=== PATIENT | female | born 1935 | race Caucasian/White ===

== ENCOUNTER 2018-05-13 15:42 | Emergency (ER) | payer MEDICARE, OTHER, SELFPAY ==
[2018-05-13 15:43] VITALS: BP 149/92; PULSE 76; RESP 16; TEMP 36.7; O2SAT 96; BMI 29.4
--- NOTE | 2018-05-13 16:02 | CT_ITS ---
STUDY: CT BRAIN WITHOUT CONTRAST REASON FOR EXAM: Female, 82 years old. Severe right ear pain today. RADIATION DOSAGE (If Supplied By Facility): CTDIvol = ( 44.99 ) mGy, DLP = ( 779.24 ) mGycm TECHNIQUE: Transaxial CT imaging of the brain was performed without administration of intravenous contrast material. Individualized dose optimization techniques were used for this CT. COMPARISON: June 01, 2015 FINDINGS: There are grossly stable subcutaneous soft tissue nodules that are partially calcified overlying the right occipital calvarium. Normal calvarium. There is mild cerebral atrophy with widening of the extra-axial spaces and ventricular dilatation. There are areas of decreased attenuation within the white matter tracts of the supratentorial brain, consistent with microvascular disease changes. Normal basal ganglia and thalami. Normal brainstem. There is mild cerebellar atrophy. There is no intracranial hemorrhage. There are no findings of an acute ischemic infarction. Normal visualized paranasal sinuses. CT/Brain/Head without Contrast IMPRESSION: Chronic involutional changes of the brain. Small vessel ischemia. Electronically Signed: Marlyn Shay MD at 16:38 EDT Tel , Service support ,
--- NOTE | 2018-05-13 16:03 | ED.VISSUMM ---
- ER Visit Summary Date of Service: 05/13/18 Chief Complaint: [Pain in head] History of Present Illness: The patient is a 82 F [who presents the emergency department with pain behind her right ear. It is a shooting pain that shoots from behind her right ear to her right episcopal. It arrives every minute. He keeps her up at night. There has been no vision changes no fever. She is on Nexium for reflux and when she swallowed this morning she had a little bit of pain on the right side of her neck and then that went away. No nasal congestion she does not feel pain in her ear. She had similar pain in 2013 as well as 2015 first time she was put on penicillin and it went away the second time she was put on prednisone and it went away. She went to urgent care today and was referred to the emergency department.] Physical Examination: [] Normocephalic atraumatic skin over the area of concern behind her right ear is nontender there is no erythema or swelling Pupils are equal and reactive and extraocular eye movements are intact she will field deficits There is no temporal artery tenderness TMs are retracted bilaterally there is no erythema or purulence no bulging there is no pain with movement of the pinna There is no midline neck tenderness there is no reproducible pain with axial loading or turning the head from side to side there is no bruit Regular rate and rhythm no murmurs clear to auscultation bilaterally symmetric radial pulses Alert and oriented ?3 no focal weakness or sensory deficits no speech impairment patient walks with a cane but has no acute gait disturbances Test Results: [] Emergency Department Course and Treatment: [CT of the head shows chronic changes. CRP is mildly elevated. I do suspect this is a neuropathic pain however vasculitis is a possibility. We will start her on a trial of prednisone. She has an appointment with her doctor tomorrow. This does not sound like cardiac pain. It is a shooting pain behind her right ear up to her episcopal she has no chest pain or neck pain. I will give her a short course of pain medicine. She was given precautions for which to return and will follow up with her doctor.] Treatment Plan: [] Disposition: [Discharge] Impression: [1. 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 Mild elevation of CRP] This note was generated with [employer]ation software. It may contain incorrect words, spelling, and punctuation that were not noted in review of the chart prior to signing ED Disposition - Plan for ED Patient: Chief Complaint: Headache Referrals: Eleuterio Mistry MD [Primary Care Provider] -
--- NOTE | 2018-05-13 16:07 | ED.DCSUM_ITS ---
- ER Visit Summary Date of Service: 05/13/18 Chief Complaint: [Pain in head] History of Present Illness: The patient is a 82 F [who presents the emergency department with pain behind her right ear. It is a shooting pain that shoots from behind her right ear to her right zoroastrianism. It arrives every minute. He keeps her up at night. There has been no vision changes no fever. She is on Nexium for reflux and when she swallowed this morning she had a little bit of pain on the right side of her neck and then that went away. No nasal congestion she does not feel pain in her ear. She had similar pain in 2013 as well as 2015 first time she was put on penicillin and it went away the second time she was put on prednisone and it went away. She went to urgent care today and was referred to the emergency department.] Physical Examination: [] Normocephalic atraumatic skin over the area of concern behind her right ear is nontender there is no erythema or swelling Pupils are equal and reactive and extraocular eye movements are intact she will field deficits There is no temporal artery tenderness TMs are retracted bilaterally there is no erythema or purulence no bulging there is no pain with movement of the pinna There is no midline neck tenderness there is no reproducible pain with axial loading or turning the head from side to side there is no bruit Regular rate and rhythm no murmurs clear to auscultation bilaterally symmetric radial pulses Alert and oriented ?3 no focal weakness or sensory deficits no speech impairment patient walks with a cane but has no acute gait disturbances Test Results: [] Emergency Department Course and Treatment: [CT of the head shows chronic changes. CRP is mildly elevated. I do suspect this is a neuropathic pain however vasculitis is a possibility. We will start her on a trial of prednisone. She has an appointment with her doctor tomorrow. This does not sound like cardiac pain. It is a shooting pain behind her right ear up to her zoroastrianism she has no chest pain or neck pain. I will give her a short course of pain medicine. She was given precautions for which to return and will follow up with her doctor.] Treatment Plan: [] Disposition: [Discharge] Impression: [1. 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 Mild elevation of CRP] This note was generated with [employer] software. It may contain incorrect words, spelling, and punctuation that were not noted in review of the chart prior to signing ED Disposition - Plan for ED Patient: Chief Complaint: Headache Referrals: Eleuterio Mistry MD [Primary Care Provider] -
[2018-05-13 16:56] LABS: CRP 4.36 mg/L (0.0-3.0)
--- NOTE | 2018-05-13 17:26 | ED.DEP ---
ED Disposition - Plan for ED Patient: Chief Complaint: Headache Instructions: ED Cephalgia Unspecified Prescriptions: Oxycodone HCl/Acetaminophen [Percocet 5/325] 1 tablet PO Q6H PRN PRN 2 Days #6 tablet PRN Reason: Pain Prednisone [Deltasone] 40 mg PO DAILY 8 Days tablet Referrals: Eleuterio Mistry MD [Primary Care Provider] - 1 Day
[2018-05-13] MEDS: predniSONE 20 MG Tablet 40 MG PO (17:31)
[2018-05-13] MEDS: HYDROcodone Bitartrate/Apap 5/325 Tablet PO (17:32)
[2018-05-13 17:36] VITALS: BP 138/78; PULSE 80; RESP 14; O2SAT 98
== END 2018-05-13 17:36 | disposition home or self-care (01) ==
PROVIDERS: Emergency Provider Emergency Medicine; Family Provider Family Medicine; PCP Family Medicine
DX: R51 Headache (principal); G62.9 Polyneuropathy, unspecified; K21.9 Gastro-esophageal reflux disease without esophagitis; R79.82 Elevated C-reactive protein (CRP)
CPT/HCPCS: 70450; 86140; 99283

== ENCOUNTER 2019-01-07 16:50 | Observation (INO) | payer MEDICARE, OTHER, SELFPAY ==
[2019-01-07] VITALS (9 sets, daily range): BP systolic 146–196; BP diastolic 65–91; PULSE 66–83; RESP 17–18; TEMP 37.3–37.4; O2SAT 96–100; BMI 30.4; BMI 29.1
--- NOTE | 2019-01-07 17:17 | EKG12_ITS ---
Test Reason : NEURO S/X Blood Pressure : / mmHG Vent. Rate : 073 BPM Atrial Rate : 073 BPM P-R Int : 156 ms QRS Dur : 098 ms QT Int : 404 ms P-R-T Axes : 047 -31 019 degrees QTc Int : 445 ms Normal sinus rhythm Left axis deviation Moderate voltage criteria for LVH, may be normal variant Nonspecific ST abnormality Abnormal ECG Confirmed by KATLYN CHAN, NAGA ([id number]), desk editor LEONEL MCKINNEY ([id number]) on 01/11/2019 10:42:12 AM Referred By: Confirmed By:NAGA POTTS MD
--- NOTE | 2019-01-07 17:17 | CT_ITS ---
STUDY: CT BRAIN WITHOUT CONTRAST REASON FOR EXAM: Female, 83 years old. Difficulty speaking. RADIATION DOSAGE (If Supplied By Facility): CTDIvol = ( 44.99 ) mGy, DLP = ( 745.49 ) mGycm TECHNIQUE: Transaxial CT imaging of the brain was performed without administration of intravenous contrast material. Individualized dose optimization techniques were used for this CT. COMPARISON: May 13, 2018 FINDINGS: There are grossly two stable subcutaneous partially calcified subcutaneous nodule within the posterior neck. Normal calvarium. Normal size ventricles and extra-axial spaces for the patient's age. There are areas of decreased attenuation within the white matter tracts of the supratentorial brain, consistent with microvascular disease changes. Normal basal ganglia and thalami. Normal brainstem. Normal cerebellum. There is no intracranial hemorrhage. There are no findings of an acute ischemic infarction. Normal visualized paranasal sinuses. CT/Brain/Head without Contrast IMPRESSION: Small vessel ischemia. Electronically Signed: Marlyn Shay MD at 18:34 EST Tel , Service support ,
--- NOTE | 2019-01-07 17:17 | RAD_ITS ---
STUDY: X-RAY CHEST REASON FOR EXAM: Female, 83 years old. Difficulty finding words and mentation TECHNIQUE: Single frontal view COMPARISON: April 01, 2015 FINDINGS: The lungs are clear and expanded. There is no demonstrated pleural abnormality. Normal size heart. Normal mediastinum and cheko. Normal visualized pulmonary arteries. Calcified aortic arch and descending thoracic aorta. Normal visualized thoracic spine. Normal visualized ribs, clavicles, and shoulders. There is no demonstrated abnormality of the visualized soft tissue structures of the upper abdomen. RAD/Chest 1 View IMPRESSION: Normal x-ray examination of the chest. Electronically Signed: Vince Jurado DO at 19:38 EST Tel [phone], Service support ,
--- NOTE | 2019-01-07 17:24 | ED.VISSUMM ---
- ER Visit Summary Date of Service: 01/07/19 Chief Complaint: Difficulty speaking History of Present Illness: The patient is a 83 F presenting after having an episode of difficulty speaking. She states that this started around 2 PM. She had difficulty finding words. She states she was stressed over paying bills at the time and was having trouble focusing. Her symptoms have now resolved. She also complains of urinary frequency and dysuria. She has had similar symptoms in the past when she had a bladder infection. She denies numbness or weakness. Denies vision changes. She feels back to baseline. Physical Examination: Blood pressure 196/76. Temperature 99.4. Alert no acute distress. HEENT exam is unremarkable. Neck is supple. Lungs are clear and equal bilaterally. Heart is regular rate and rhythm. Abdomen is soft nontender nondistended. Extremities are unremarkable. Skin is warm and dry. No focal neurologic deficit. NIH 0 Remainder of exam is unremarkable. Emergency Department Course and Treatment: EKG is sinus rate of 73. CBC, chemistries unremarkable. Urinalysis shows positive leukocytes, 0-5 white blood cells. Urine culture was sent. Troponin was negative. CT head shows small vessel ischemia. NIH remains 0. Will discuss with the hospitalist for observation. Disposition: Observation Impression: TIA This note was generated with [employer] dictation software. It may contain incorrect words, spelling, and punctuation that were not noted in review of the chart prior to signing ED Disposition - Plan for ED Patient: Referrals: Eleuterio Mistry MD [Primary Care Provider] -
[2019-01-07 17:52] LABS: Absolute Lymphocyte Count 1.06 X10^3/ul (0.83-4.51); Absolute Neutrophil Count 2.9 X10^3/uL (2.0-7.7); Basophil# 0.03 X10^3/uL; Basophil% 0.7 % (0-1); Eosinophil# 0.12 X10^3/uL; Eosinophils% 2.7 % (0-5); Hematocrit 44.1 % (37-47); Lymphocyte # 1.06 X10^3/ul (4.0); Lymphocyte % 23.7 % (19-41); Mean Corp Hgb Conc 31.7 g/gl (32-36); Mean Corpuscular Hgb 28.6 pg (27.0-32.0); Mean Corpuscular Volume 90.2 fL (81-99); Mean Platelet Vol. 9.4 fl (6.2-12.0); Monocyte# 0.37 X10^3/uL; Monocyte% 8.3 % (0-10); Neutrophil % 64.6 % (47-70); Platelet Count 243 K/mm3 (150-450); RBC Distribution Width CV 12.6 % (11.6-14.6); RBC Distribution Width SD 40.9 fl (35.1-43.9); Red Blood Count 4.89 M/mm3 (4.2-5.4); White Blood Count 4.5 K/mm3 (4.4-11.0)
[2019-01-07 17:55] LABS: POSITIVE COUNT NO; POSITIVE DIFFERENTIAL NO; POSITIVE MORPHOLOGY NO
[2019-01-07 17:56] LABS: Bacteria 0 SEEN /hpf (None Seen); Mucous, Urine 0 SEEN /hpf (<or=2+); Red Blood Cells-Urine 0 SEEN /hpf (0-5)
[2019-01-07 18:05] LABS: Color, Urine Straw (Yellow); Glucose, Dipstick Normal (Normal); Ketone-Dipstick Negative (Negative); Leukocyte Esterase-Dipstick 100 /ul (Negative); Nitrite-Dipstick Negative (Negative); Occult Blood-Urine 10 /ul (Negative); Protein-Dipstick Negative (Negative); Specific Gravity, Urine 1.015 (1.002-1.030); Urine Bilirubin Dipstick Negative (Negative); Urine Clarity Clear (Clear); Urine Urobilinogen Normal (Normal)
[2019-01-07 18:23] LABS: Squamous Epithelial Cells - UA 0-5 SEEN /hpf (5-10)
[2019-01-07 18:25] LABS: White Blood Cells 0-5 SEEN /hpf (0-5)
[2019-01-07 18:26] LABS: Transitional Epithelial - Ur 0-5 SEEN /hpf (0-5)
[2019-01-07 18:29] LABS: Anion Gap 8 (5-15); BUN 14 mg/dL (7-18); BUN/Creat Ratio 17.6 RATIO (10-20); Calcium,Total 8.8 mg/dL (8.5-10.1); Chloride 106 mmol/L (98-107); EST Glomerular Filtration Rate 73 mL/min (>60); Est Glom Filt Rate - Afr Amer 88 mL/min (>60); Estimated Creatinine Clearance 44.08 ml/min; Glucose 134 mg/dL (74-106); Potassium 4.2 mmol/L (3.5-5.1); Sodium Level 139 mmol/L (136-145)
[2019-01-07 18:56] LABS: International Normalized Ratio 0.9; Partial Thromboplast Time 28.5 Seconds (24.1-36.2); Prothrombin Time (Protime)PT. 12.5 SECONDS (11.7-14.9)
--- NOTE | 2019-01-07 20:27 | PCM.HP.STD ---
History of Present Illness The patient is a 83 year old F [] Past Medical History Past Medical History (Chronic Problems): Chronic Problems Hyperlipidemia (Chronic) GERD (gastroesophageal reflux disease) (Chronic) CVA (cerebral infarction) (Chronic) Anxiety and depression (Chronic) Allergies lactose Adverse Reaction (Verified 06/01/15 19:26) Upset Stomach Home Medications: Ambulatory Orders Medication Instructions Recorded Aspirin [Aspirin, Baby] 81 mg PO DAILY@0800 #30 tab.chew 04/02/15 Acetaminophen [Tylenol] 500 mg PO PRN PRN 01/07/19 Doxepin HCl [Silenor] 3 mg PO QHS 01/07/19 Meloxicam [Mobic] 15 mg PO DAILY 01/07/19 Surgical History: hysterectomy Psychiatric History: Anxiety, Depression 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 Smoking Status: Never smoker - *Family History Maternal History Items: Cancer, Diabetes, Heart Disease, Stroke Paternal History Items: Cancer, Diabetes, Heart Disease, Stroke - Physical Exam Vital Signs Temp Pulse Resp BP Pulse Ox 99.4 F H 76 18 169/65 H 96 01/07/19 16:57 01/07/19 19:00 01/07/19 19:00 01/07/19 19:00 01/07/19 19:00 Oxygen Delivery Method Room Air Weight: 77.8 kg Body Mass Index (BMI) 30.4 Finger Stick Blood Glucose 134 Laboratory Tests Past 24 Hrs 01/07/19 01/07/19 01/07/19 17:36 17:36 17:36 WBC 4.5 RBC 4.89 Hgb 14.0 Hct 44.1 MCV 90.2 MCH 28.6 MCHC 31.7 L RDW 12.6 RDW Differential 40.9 Plt Count 243 MPV 9.4 Immature Gran % (Auto) 0.000 Neut % (Auto) 64.6 Lymph % (Auto) 23.7 [place] % (Auto) 8.3 Eos % (Auto) 2.7 Baso % (Auto) 0.7 Absolute Neuts (auto) 2.9 Absolute Lymphs (auto) 1.06 Total Counted Not Reportable PT 12.5 INR 0.9 APTT 28.5 Sodium 139 Potassium 4.2 Chloride 106 Carbon Dioxide 25.0 Anion Gap 8 BUN 14 Creatinine 0.80 Estim Creat Clear Calc 44.08 Est GFR (MDRD) Af Amer 88 Est GFR (MDRD) Non-Af 73 BUN/Creatinine Ratio 17.6 Glucose 134 H Calcium 8.8 Troponin I < 0.015 Urine Color Urine Clarity Urine pH Ur Specific [place] Urine Protein Urine Glucose (UA) Urine Ketones Urine Occult Blood Urine Nitrite Urine Bilirubin Urine Urobilinogen Ur Leukocyte Esterase Urine RBC Urine WBC Ur Squamous Epith Cells Ur Transition Epith Cell Urine Bacteria Urine Mucus 01/07/19 17:43 WBC RBC Hgb Hct MCV MCH MCHC RDW RDW Differential Plt Count MPV Immature Gran % (Auto) Neut % (Auto) Lymph % (Auto) [place] % (Auto) Eos % (Auto) Baso % (Auto) Absolute Neuts (auto) Absolute Lymphs (auto) Total Counted PT INR APTT Sodium Potassium Chloride Carbon Dioxide Anion Gap BUN Creatinine Estim Creat Clear Calc Est GFR (MDRD) Af Amer Est GFR (MDRD) Non-Af BUN/Creatinine Ratio Glucose Calcium Troponin I Urine Color Straw Urine Clarity Clear Urine pH 7.0 Ur Specific [place] 1.015 Urine Protein Negative Urine Glucose (UA) Normal Urine Ketones Negative Urine Occult Blood 10 H Urine Nitrite Negative Urine Bilirubin Negative Urine Urobilinogen Normal Ur Leukocyte Esterase 100 H Urine RBC 0 SEEN Urine WBC 0-5 SEEN Ur Squamous Epith Cells 0-5 SEEN Ur Transition Epith Cell 0-5 SEEN Urine Bacteria 0 SEEN Urine Mucus 0 SEEN Assessment/Plan All Active Problems TIA (transient ischemic attack) (Acute) Gastroesophageal reflux disease with hiatal hernia (Acute)
--- NOTE | 2019-01-07 20:50 | PCM.HP.STD ---
Problem List (1) Hyperlipidemia Status: Chronic Qualifiers: Hyperlipidemia type: unspecified Qualified Code(s): E78.5 - Hyperlipidemia, unspecified (2) TIA (transient ischemic attack) Status: Acute Qualifiers: Transient cerebral ischemia type: unspecified Qualified Code(s): G45.9 - Transient cerebral ischemic attack, unspecified (3) Anxiety and depression Status: Chronic (4) Gastroesophageal reflux disease with hiatal hernia Status: Chronic History of Present Illness Date of Admission: 01/07/19 Chief Complaint: Difficulty speaking - 1 day The patient is a 83 year old F past medical history of TIA, patient denies any history of stroke, anxiety/depression, hyperlipidemia who comes in with complaints of expressive aphasia that started around 2 PM. Patient was sitting down trying to do her bills, had difficulty thinking through the bills, difficulty also speaking. She denied feeling unwell prior to this presentation. This lasted for couple of hours, seemed to have resolved when she was given some aspirin. Patient is supposed to be on aspirin but does not take. Vitals in the ED show temperature of 99.4F, chills 196/79, heart rate was 80, respiratory rate was 17, SPO2 is 98% on room air. Her admitting lab was unremarkable. UA was unremarkable. CT of the head showed small vessel ischemia. Chest x-ray was unremarkable Past Medical History Past Medical History (Chronic Problems): Chronic Problems Hyperlipidemia (Chronic) GERD (gastroesophageal reflux disease) (Chronic) CVA (cerebral infarction) (Chronic) Anxiety and depression (Chronic) Gastroesophageal reflux disease with hiatal hernia (Chronic) Allergies lactose Adverse Reaction (Verified 06/01/15 19:26) Upset Stomach Home Medications: Ambulatory Orders Medication Instructions Recorded Aspirin [Aspirin, Baby] 81 mg PO DAILY@0800 #30 tab.chew 04/02/15 Acetaminophen [Tylenol] 500 mg PO PRN PRN 01/07/19 Doxepin HCl [Silenor] 3 mg PO QHS 01/07/19 Meloxicam [Mobic] 15 mg PO DAILY 01/07/19 Surgical History: hysterectomy Psychiatric History: Anxiety, Depression 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 Dyspnea Respiratory: Denies: Cough, Hemoptysis, Shortness of Breath, Shortness of breath at rest, Shortness of breath upon exertion, Sputum production Gastrointestinal: Denies: Abdominal Pain, Constipation, Hematemesis, Hematochezia, Nausea, Vomiting Genitourinary: Denies: Dysuria Musculoskeletal: Denies: Joint Pain, Joint Tenderness Skin: Denies: Rash, Wounds Neurological: Reports: Change in Speech, Slurred speech, Confusion. Denies: Difficulty swallowing, Focal weakness, Numbness, Tingling Psychiatric: Denies: Anxiety, Depression, Homicidal Ideations, Suicidal Ideations Endocrine: Denies: Change in Body Habitus, Heat/ Cold Intolerance Hematologic/ Lymphatic: Denies: Easy Bruising, Easy Bleeding VTE Information - Inpt Only VTE Present on Admission: No VTE Pharm Prophylaxis ordered?: Yes - Physical Exam General: Alert, Oriented x3, Cooperative, No apparent distress HEENT: Atraumatic, PERRLA, EOMI, Normocephalic Oral: Moist Mucosa Neck: Supple, No JVD, Negative Carotid Bruits Lungs: Clear to auscultation, Normal air movement Cardiovascular: Regular rate, Regular Rhythm, Normal S1, Normal S2, No murmurs Abdomen: Bowel Sounds Present, Soft, Non Tender, Non-Distended, No Hepato-splenomegaly Extremities: No edema Skin: No rashes, No breakdown Musculoskeletal: No Tenderness to Palpation of Joints or Extremities Lymphatic: No Cervical, Supraclavicular, or Inguinal Adenopathy Neurological: Cranial nerves II-XII grossly intact, Neuro grossly intact Psych/Mental Status: Normal Affect, Appropriate Vital Signs Temp Pulse Resp BP Pulse Ox 99.4 F H 76 18 169/65 H 96 01/07/19 16:57 01/07/19 19:00 01/07/19 19:00 01/07/19 19:00 01/07/19 19:00 Oxygen Delivery Method Room Air Weight: 77.8 kg Body Mass Index (BMI) 30.4 Finger Stick Blood Glucose 134 Laboratory Tests Past 24 Hrs 01/07/19 01/07/19 01/07/19 17:36 17:36 17:36 WBC 4.5 RBC 4.89 Hgb 14.0 Hct 44.1 MCV 90.2 MCH 28.6 MCHC 31.7 L RDW 12.6 RDW Differential 40.9 Plt Count 243 MPV 9.4 Immature Gran % (Auto) 0.000 Neut % (Auto) 64.6 Lymph % (Auto) 23.7 [place] % (Auto) 8.3 Eos % (Auto) 2.7 Baso % (Auto) 0.7 Absolute Neuts (auto) 2.9 Absolute Lymphs (auto) 1.06 Total Counted Not Reportable PT 12.5 INR 0.9 APTT 28.5 Sodium 139 Potassium 4.2 Chloride 106 Carbon Dioxide 25.0 Anion Gap 8 BUN 14 Creatinine 0.80 Estim Creat Clear Calc 44.08 Est GFR (MDRD) Af Amer 88 Est GFR (MDRD) Non-Af 73 BUN/Creatinine Ratio 17.6 Glucose 134 H Calcium 8.8 Troponin I < 0.015 Urine Color Urine Clarity Urine pH Ur Specific [place] Urine Protein Urine Glucose (UA) Urine Ketones Urine Occult Blood Urine Nitrite Urine Bilirubin Urine Urobilinogen Ur Leukocyte Esterase Urine RBC Urine WBC Ur Squamous Epith Cells Ur Transition Epith Cell Urine Bacteria Urine Mucus 01/07/19 17:43 WBC RBC Hgb Hct MCV MCH MCHC RDW RDW Differential Plt Count MPV Immature Gran % (Auto) Neut % (Auto) Lymph % (Auto) [place] % (Auto) Eos % (Auto) Baso % (Auto) Absolute Neuts (auto) Absolute Lymphs (auto) Total Counted PT INR APTT Sodium Potassium Chloride Carbon Dioxide Anion Gap BUN Creatinine Estim Creat Clear Calc Est GFR (MDRD) Af Amer Est GFR (MDRD) Non-Af BUN/Creatinine Ratio Glucose Calcium Troponin I Urine Color Straw Urine Clarity Clear Urine pH 7.0 Ur Specific [place] 1.015 Urine Protein Negative Urine Glucose (UA) Normal Urine Ketones Negative Urine Occult Blood 10 H Urine Nitrite Negative Urine Bilirubin Negative Urine Urobilinogen Normal Ur Leukocyte Esterase 100 H Urine RBC 0 SEEN Urine WBC 0-5 SEEN Ur Squamous Epith Cells 0-5 SEEN Ur Transition Epith Cell 0-5 SEEN Urine Bacteria 0 SEEN Urine Mucus 0 SEEN Assessment/Plan All Active Problems TIA (transient ischemic attack) (Acute) 83 year old F past medical history of TIA, patient denies any history of stroke, anxiety/depression, hyperlipidemia who comes in with complaints of expressive aphasia that started around 2 PM of the day of presentation. 1. Acute onset of expressive aphasia, transient, lasted for couple of hours, resolved, likely secondary to TIA Plan: Admit to PCU, monitor on telemetry, TIA/stroke protocol, PT, OT, speech therapy, neurology consult, continue on aspirin, lipid profile, HgbA1c, 2D echo, MRI of the head, MRA of the head and neck 2. Anxiety/depression, not on medication 3. Chronic insomnia, on doxepin, will not recommend, would hold for now 4. DVT PPx- Lovenox SC Code Visit OBSV E&M: [id number] Initial observation care L3
--- NOTE | 2019-01-07 22:06 | ECHOD_ITS ---
Reason For Study: TIA/CVA Procedure This was a 2D Doppler, Color Flow transthoracic echocardiogram. Exam performed portable in patient room. Left Ventricle Normal size and thickness. The estimated ejection fraction is 75 %. Stage 1 diastolic dysfunction. No regional wall motion abnormalities noted. Right Ventricle Normal size and thickness. Normal systolic function. Atria Normal left atrium. Normal right atrium. Normal atrial septum. Bubble contrast study negative for right to left interatrial shunt. Mitral Valve The mitral valve is structurally normal. No prolapse or stenosis seen. Trivial mitral valve insufficiency. Tricuspid Valve Normal tricuspid valve. Trivial tricuspid valve insufficiency. Right ventricular systolic pressure estimated to be 31 mmHg. Aortic Valve Trisinus/trileaflet aortic valve. Mild diffuse aortic valve thickening. Trivial aortic valve insufficiency. Pulmonic Valve Normal pulmonic valve. Great Vessels Normal aortic root. Normal arch. Normal inferior vena cava. Inferior vena cava collapse with sniff. Pericardium/Pleural No pericardial effusion. Medication Performed a rapid injection of agitated mix of 9 cc saline and 1cc air to assess for atrial septal defect. MMode/2D Measurements & Calculations LVIDd: 3.2 cm IVSd: 1.2 cm Ao root diam: 3.3 cm LVIDs: 1.8 cm LVPWd: 0.93 cm RVDd: 3.7 cm FS: 44.4 % LAV(MOD-bp): 37.7 ml LVAd ap4: 21.1 cm2 SV(MOD-sp4): 37.9 ml LAV(MOD-bp) Indexed: 20.8 ml/m2 EDV(MOD-sp4): 55.0 ml LAV(MOD-sp2): 37.7 ml EDV(sp4-el): 58.2 ml LAV(MOD-sp4): 38.3 ml LVAs ap4: 10.2 cm2 ESV(MOD-sp4): 17.1 ml ESV(sp4-el): 17.3 ml EF(MOD-sp4): 69.0 % EF(sp4-el): 70.3 % SV(sp4-el): 40.9 ml LA A4 area: 15.9 cm2 LA dimension(2D): 4.2 cm RA A4 area: 10.5 cm2 Doppler Measurements & Calculations MV E max phill: 66.4 cm/sec Lat Peak E' Phill: 4.1 cm/sec Med Peak E' Phill: 5.2 cm/sec MV A max phill: 100.0 cm/sec E/E' lat: 16.1 E/E' med: 12.9 MV E/A: 0.66 Ao V2 max: 120.2 cm/sec LV V1 max: 115.9 cm/sec PA V2 max: 76.4 cm/sec Ao max P.8 mmHg LV V1 max P.4 mmHg Ao V2 mean: 86.9 cm/sec Ao mean P.3 mmHg Ao V2 VTI: 26.9 cm TR max phill: 258.5 cm/sec TR max P.7 mmHg Interpretation Summary The estimated ejection fraction is 75 %. Stage 1 diastolic dysfunction. Trivial mitral valve insufficiency. Trivial tricuspid valve insufficiency. Right ventricular systolic pressure estimated to be 31 mmHg. Trivial aortic valve insufficiency. Bubble contrast study negative for right to left interatrial shunt. There is no comparison study available. Ordering Physician: Desire Hawkins Referring Physician: Eleuterio Msitry Performed By: Angelika Becerra, GABINO, RVT
[2019-01-07 23:50] LABS: Hemoglobin A1c 6.2 % (4.2-6.3)
[2019-01-08] VITALS (7 sets, daily range): BP systolic 135–154; BP diastolic 63–87; PULSE 66–72; RESP 16–18; TEMP 36.8–37.2; O2SAT 94–96; BMI 29.1
[2019-01-08] MEDS: Atorvastatin Calcium 80 MG Tablet PO (00:46)
[2019-01-08 07:10] LABS: Anion Gap 8 (5-15); BUN 13 mg/dL (7-18); BUN/Creat Ratio 17.9 RATIO (10-20); Calcium,Total 8.8 mg/dL (8.5-10.1); Chloride 107 mmol/L (98-107); Cholesterol 249 mg/dL (200); Creatinine, Serum 0.72 mg/dL (0.55-1.02); EST Glomerular Filtration Rate 82 mL/min (>60); Est Glom Filt Rate - Afr Amer 99 mL/min (>60); Estimated Creatinine Clearance 35.26 ml/min; Glucose 109 mg/dL (74-106); High Density Lipoprotein 62 mg/dL; Potassium 3.6 mmol/L (3.5-5.1); Sodium Level 142 mmol/L (136-145); Triglycerides 142 mg/dL; Very Low Density Lipoprotein 28 mg/dL (5-40)
[2019-01-08] MEDS: Aspirin 81 MG TAB.CHEW PO (09:44)
--- NOTE | 2019-01-08 10:53 | PCM.CONS.GEN ---
Reason for Consult Date of Consultation: 01/08/19 Reason for Consultation: aphasia History of Present Illness: 83 yo right handed white female presented after a 2 hr episode of language difficulty lasting for 2hrs then resolved , no other associated symptoms, feels normal now. reports significant stress recently and wonders if causative. no recent illness. recently she indicates her primary care doctor added a new pill for arthrities one month ago. no other recent medication changes, no recent illness. describes stress associated with relationships. per admit note:The patient is a 83 year old F past medical history of TIA, patient denies any history of stroke, anxiety/depression, hyperlipidemia who comes in with complaints of expressive aphasia that started around 2 PM. Patient was sitting down trying to do her bills, had difficulty thinking through the bills, difficulty also speaking. She denied feeling unwell prior to this presentation. This lasted for couple of hours, seemed to have resolved when she was given some aspirin. Patient is supposed to be on aspirin but does not take. Vitals in the ED show temperature of 99.4F, chills 196/79, heart rate was 80, respiratory rate was 17, SPO2 is 98% on room air. Her admitting lab was unremarkable. UA was unremarkable. CT of the head showed small vessel ischemia. Chest x-ray was unremarkable Past Medical History Past Medical History (Chronic Problems): Chronic Problems Hyperlipidemia (Chronic) GERD (gastroesophageal reflux disease) (Chronic) CVA (cerebral infarction) (Chronic) Anxiety and depression (Chronic) Gastroesophageal reflux disease with hiatal hernia (Chronic) Allergies lactose Adverse Reaction (Verified 06/01/15 19:26) Upset Stomach Home Medications: Ambulatory Orders Medication Instructions Recorded Aspirin [Aspirin, Baby] 81 mg PO DAILY@0800 #30 tab.chew 04/02/15 Acetaminophen [Tylenol] 500 mg PO PRN PRN 01/07/19 Doxepin HCl [Silenor] 3 mg PO QHS 01/07/19 Meloxicam [Mobic] 15 mg PO DAILY 01/07/19 Surgical History: hysterectomy Psychiatric History: Anxiety, Depression [employer] History: No pertinent [employer] history Lives: Alone Smoking Status: Never smoker Alcohol: None Drugs: None - *Family History Maternal History Items: Cancer, Diabetes, Heart Disease, Stroke Paternal History Items: Cancer, Diabetes, Heart Disease, Stroke Review of Systems Constitutional: Denies: Chills, Fever, Weight Change HEENT: Denies: Head Aches, Sinus Congestion, Sinus Drainage Cardiovascular: Denies: Chest Pain, Palpitations Respiratory: Denies: Cough, Shortness of breath at rest, Sputum production Gastrointestinal: Denies: Abdominal Pain, Nausea, Vomiting Genitourinary: Denies: Dysuria Musculoskeletal: Denies: Joint Pain, Joint Tenderness Skin: Denies: Rash, Wounds Neurological: Reports: Change in Speech. Denies: Focal weakness, Numbness, Tingling Psychiatric: Reports: Anxiety. Denies: Depression, Homicidal Ideations, Suicidal Ideations Hematologic/ Lymphatic: Denies: Easy Bruising, Easy Bleeding - Physical Exam General: Alert, Oriented x3, Cooperative, No apparent distress HEENT: Atraumatic, PERRLA, EOMI Neurological: Cranial nerves II-XII grossly intact, Deep Tendon Reflexes 2+/4 and Symmetrical, Neuro grossly intact, Motor Exam 5/5 strength throughout, Sensory exam intact to light touch and pain Psych/Mental Status: Normal Affect, Alert and oriented to time, place, person, mood and affect Vital Signs Temp Pulse Resp BP Pulse Ox 36.8 C 70 16 143/66 H 94 01/08/19 09:28 01/08/19 09:28 01/08/19 09:28 01/08/19 09:28 01/08/19 09:28 Oxygen Delivery Method Room Air Weight: 74.7 kg Body Mass Index (BMI) 29.1 Finger Stick Blood Glucose 134 Intake and Output for Last 24 Hours 01/06/19 01/07/19 01/08/19 23:59 23:59 23:59 Intake Total 240 / 240 Balance 240 / 240 Laboratory Tests Past 24 Hrs 01/07/19 01/07/19 01/07/19 17:36 17:36 17:36 WBC 4.5 RBC 4.89 Hgb 14.0 Hct 44.1 MCV 90.2 MCH 28.6 MCHC 31.7 L RDW 12.6 RDW Differential 40.9 Plt Count 243 MPV 9.4 Immature Gran % (Auto) 0.000 Neut % (Auto) 64.6 Lymph % (Auto) 23.7 [place] % (Auto) 8.3 Eos % (Auto) 2.7 Baso % (Auto) 0.7 Absolute Neuts (auto) 2.9 Absolute Lymphs (auto) 1.06 Total Counted Not Reportable PT 12.5 INR 0.9 APTT 28.5 Sodium 139 Potassium 4.2 Chloride 106 Carbon Dioxide 25.0 Anion Gap 8 BUN 14 Creatinine 0.80 Estim Creat Clear Calc 44.08 Est GFR (MDRD) Af Amer 88 Est GFR (MDRD) Non-Af 73 BUN/Creatinine Ratio 17.6 Glucose 134 H Hemoglobin A1c Calcium 8.8 Troponin I < 0.015 Triglycerides Cholesterol LDL Cholesterol VLDL Cholesterol HDL Cholesterol Urine Color Urine Clarity Urine pH Ur Specific [place] Urine Protein Urine Glucose (UA) Urine Ketones Urine Occult Blood Urine Nitrite Urine Bilirubin Urine Urobilinogen Ur Leukocyte Esterase Urine RBC Urine WBC Ur Squamous Epith Cells Ur Transition Epith Cell Urine Bacteria Urine Mucus 01/07/19 01/07/19 01/07/19 17:36 17:43 22:30 WBC RBC Hgb Hct MCV MCH MCHC RDW RDW Differential Plt Count MPV Immature Gran % (Auto) Neut % (Auto) Lymph % (Auto) [place] % (Auto) Eos % (Auto) Baso % (Auto) Absolute Neuts (auto) Absolute Lymphs (auto) Total Counted PT INR APTT Sodium Potassium Chloride Carbon Dioxide Anion Gap BUN Creatinine Estim Creat Clear Calc Est GFR (MDRD) Af Amer Est GFR (MDRD) Non-Af BUN/Creatinine Ratio Glucose Hemoglobin A1c 6.2 Calcium Troponin I < 0.015 Triglycerides Cholesterol LDL Cholesterol VLDL Cholesterol HDL Cholesterol Urine Color Straw Urine Clarity Clear Urine pH 7.0 Ur Specific [place] 1.015 Urine Protein Negative Urine Glucose (UA) Normal Urine Ketones Negative Urine Occult Blood 10 H Urine Nitrite Negative Urine Bilirubin Negative Urine Urobilinogen Normal Ur Leukocyte Esterase 100 H Urine RBC 0 SEEN Urine WBC 0-5 SEEN Ur Squamous Epith Cells 0-5 SEEN Ur Transition Epith Cell 0-5 SEEN Urine Bacteria 0 SEEN Urine Mucus 0 SEEN 01/08/19 01/08/19 01:00 06:30 WBC RBC Hgb Hct MCV MCH MCHC RDW RDW Differential Plt Count MPV Immature Gran % (Auto) Neut % (Auto) Lymph % (Auto) [place] % (Auto) Eos % (Auto) Baso % (Auto) Absolute Neuts (auto) Absolute Lymphs (auto) Total Counted PT INR APTT Sodium 142 Potassium 3.6 Chloride 107 Carbon Dioxide 27.0 Anion Gap 8 BUN 13 Creatinine 0.72 Estim Creat Clear Calc 35.26 Est GFR (MDRD) Af Amer 99 Est GFR (MDRD) Non-Af 82 BUN/Creatinine Ratio 17.9 Glucose 109 H Hemoglobin A1c Calcium 8.8 Troponin I < 0.015 Triglycerides 142 Cholesterol 249 H LDL Cholesterol 159 H VLDL Cholesterol 28 HDL Cholesterol 62 Urine Color Urine Clarity Urine pH Ur Specific [place] Urine Protein Urine Glucose (UA) Urine Ketones Urine Occult Blood Urine Nitrite Urine Bilirubin Urine Urobilinogen Ur Leukocyte Esterase Urine RBC Urine WBC Ur Squamous Epith Cells Ur Transition Epith Cell Urine Bacteria Urine Mucus Current Home Med List Medication Instructions Recorded Confirmed Type Acetaminophen [Tylenol] 500 mg PO PRN PRN 01/07/19 01/07/19 History Doxepin HCl [Silenor] 3 mg PO QHS 01/07/19 01/07/19 History Meloxicam [Mobic] 15 mg PO DAILY 01/07/19 01/07/19 History Current Medications Acetaminophen 650 mg 01/07/19 22:06 Tylenol PO Q6H PRN PRN Mild Pain (1-3)/Temp > 100.7 F Aspirin 81 mg 01/08/19 08:00 01/08/19 09:44 Aspirin, Baby PO 81 mg DAILY@0800 MANISHA Administration Atorvastatin Calcium 80 mg 01/07/19 22:06 01/08/19 00:46 Lipitor PO 80 mg QHS MANISHA Administration Magnesium Hydroxide 30 ml 01/07/19 22:06 Milk Of Magnesia PO DAILY PRN Constipation Sodium Chloride 5 - 15 ml 01/08/19 00:30 IV UD PRN SALINE FLUSH mra brain, reviewed, no stenosis mra neck: Reviewed, no stenosis mri brain: Reviewed, no acute. There is mild subcortical white matter disease but no acute. Assessment/Plan All Active Problems TIA (transient ischemic attack) (Acute) tia vs conversion reaction: suggest ssri. suggest avoid narcotics as feasible ok to dc home if echo ok continue asa recommend lexapro 10mg daily
--- NOTE | 2019-01-08 14:12 | PCM.DC ---
You will use the following diet at home:: No restrictions Your food should be the consistency of: Regular Call your doctor if you observe: - - confusion. difficulty speaking Allergies/Adverse Reactions: Allergies lactose Adverse Reaction (Verified 06/01/15 19:26) Upset Stomach Medications to take at Discharge Aspirin [Aspirin, Baby] 81 mg PO DAILY@0800 #30 tab.chew 04/02/15 Acetaminophen [Tylenol] 500 mg PO PRN PRN 01/07/19 Doxepin HCl [Silenor] 3 mg PO QHS 01/07/19 Meloxicam [Mobic] 15 mg PO DAILY 01/07/19 Escitalopram Oxalate [Lexapro] 10 mg PO DAILY #30 tablet 01/08/19 The following prescriptions were given: Escitalopram Oxalate [Lexapro] 10 mg PO DAILY #30 tablet Primary Care Physician: Eleuterio Mistry MD [Primary Care Provider] - Within 2 Weeks Test Results: Test results from this visit will be discussed in further detail at your follow-up appointment, if applicable. Proposed Discharge Date: 01/08/19
--- NOTE | 2019-01-08 14:15 | DCINST_ITS ---
You will use the following diet at home:: No restrictions Your food should be the consistency of: Regular Call your doctor if you observe: - - confusion. difficulty speaking Allergies/Adverse Reactions: Allergies lactose Adverse Reaction (Verified 06/01/15 19:26) Upset Stomach Medications to take at Discharge Aspirin [Aspirin, Baby] 81 mg PO DAILY@0800 #30 tab.chew 04/02/15 Acetaminophen [Tylenol] 500 mg PO PRN PRN 01/07/19 Doxepin HCl [Silenor] 3 mg PO QHS 01/07/19 Meloxicam [Mobic] 15 mg PO DAILY 01/07/19 Escitalopram Oxalate [Lexapro] 10 mg PO DAILY #30 tablet 01/08/19 The following prescriptions were given: Escitalopram Oxalate [Lexapro] 10 mg PO DAILY #30 tablet Primary Care Physician: Eleuterio Mistry MD [Primary Care Provider] - Within 2 Weeks Test Results: Test results from this visit will be discussed in further detail at your follow- up appointment, if applicable. Proposed Discharge Date: 01/08/19
--- NOTE | 2019-01-08 14:15 | PCM.DC.SUM ---
Discharge Date and Diagnosis - Problem List Patient Problems: Active and Suspected Problems Delirium (Acute) Date of Admission: 01/07/19 Date of Discharge: 01/08/19 - Primary Discharge Diagnosis Active and Suspected Problems Delirium (Acute) - Secondary Discharge Diagnosis Chronic Problems Hyperlipidemia (Chronic) GERD (gastroesophageal reflux disease) (Chronic) CVA (cerebral infarction) (Chronic) Anxiety and depression (Chronic) Gastroesophageal reflux disease with hiatal hernia (Chronic) Hospital Course and Treatment Imaging Results: 01/08/19 22:06 Brain without Contrast [MRI] Routine MRA Head ONLY without Contrast [MRI] Routine MRA Neck WITH and W/O Contrast [MRI] Routine Clinical Impression(s) from Imaging Studies Brain CT 01/07/19 17:17 IMPRESSION: Small vessel ischemia. Electronically Signed: Marlyn Shay MD at 18:34 EST Tel , Service support , Chest X-Ray 01/07/19 17:17 IMPRESSION: Normal x-ray examination of the chest. Electronically Signed: Vince Jurado DO at 19:38 EST Tel [phone], Service support , Brain MRI 01/08/19 22:06 IMPRESSION: Involutional changes of the brain, as described above. Electronically Signed: Sancho Hilario MD at 12:10 EST , Service support , Head MRA 01/08/19 22:06 IMPRESSION: Normal MRA of the head. No aneurysm or occlusion. Stable appearance. Electronically Signed: Sancho Hilario MD at 11:12 EST , Service support , Neck MRA 01/08/19 22:06 IMPRESSION: Normal bilateral cervical carotid and vertebral arteries. Electronically Signed: Sancho Hilario MD at 12:16 EST , Service support , Wily Perez MD: Neurology. Operations: None Procedures: 2-D Echocardiogram Summary of Care Provided: The patient is a 83 year old F presents with expressive aphasia. Symptoms lasted a couple hours and then resolve spontaneously. Patient was doing some paperwork. She does state that she was under stress but denies any undue stress. Denies any history of panic attacks. Patient presented to the emergency room where her symptoms had completely resolved. Patient is never had any issues like this before. Patient underwent a stroke workup with an MRI of the brain, MRA of the head and neck unremarkable. Echocardiogram was performed is currently pending at time of dictation. Patient was seen in consultation by neurology feel that the event of a stress reaction and recommended an SSRI Lexapro 10 mg daily. So patient will be discharged home in stable condition and will be started on Cipro 10 mg daily. Advised to return if she does have recurrent symptoms. [] Patient Problems: Active and Suspected Problems Delirium (Acute) - Physical Exam General: Alert, Cooperative, No apparent distress HEENT: Atraumatic, Normocephalic Oral: Moist Mucosa, No Gingival or Mucosal Lesions/ Ulcerations Neck: No Nodes, Thyroid Normal Size and Texture Lungs: Clear to auscultation, Normal air movement, No rhonchi, No wheeze Cardiovascular: Regular rate, Regular Rhythm, Normal S1, Normal S2 Abdomen: Bowel Sounds Present, Soft, Non Tender, Non-Distended, No Hepato-splenomegaly Extremities: No edema, No Calf Tenderness Vital Signs Temp Pulse Resp BP Pulse Ox 36.8 C 72 18 154/87 H 95 01/08/19 13:15 01/08/19 13:15 01/08/19 13:15 01/08/19 13:15 01/08/19 13:15 Oxygen Delivery Method Room Air Weight: 74.7 kg Body Mass Index (BMI) 29.1 Finger Stick Blood Glucose 134 Intake and Output for Last 24 Hours 01/06/19 01/07/19 01/08/19 23:59 23:59 23:59 Intake Total 240 / 240 Balance 240 / 240 Microbiology Past 72 Hours 01/07/19 17:43 Urine Culture - Preliminary Urine, Clean Catch Culture exhibits no growth. Laboratory Tests Past 24 Hrs 01/07/19 01/07/19 01/07/19 17:36 17:36 17:36 WBC 4.5 RBC 4.89 Hgb 14.0 Hct 44.1 MCV 90.2 MCH 28.6 MCHC 31.7 L RDW 12.6 RDW Differential 40.9 Plt Count 243 MPV 9.4 Immature Gran % (Auto) 0.000 Neut % (Auto) 64.6 Lymph % (Auto) 23.7 [place] % (Auto) 8.3 Eos % (Auto) 2.7 Baso % (Auto) 0.7 Absolute Neuts (auto) 2.9 Absolute Lymphs (auto) 1.06 Total Counted Not Reportable PT 12.5 INR 0.9 APTT 28.5 Sodium 139 Potassium 4.2 Chloride 106 Carbon Dioxide 25.0 Anion Gap 8 BUN 14 Creatinine 0.80 Estim Creat Clear Calc 44.08 Est GFR (MDRD) Af Amer 88 Est GFR (MDRD) Non-Af 73 BUN/Creatinine Ratio 17.6 Glucose 134 H Hemoglobin A1c Calcium 8.8 Troponin I < 0.015 Triglycerides Cholesterol LDL Cholesterol VLDL Cholesterol HDL Cholesterol Urine Color Urine Clarity Urine pH Ur Specific [place] Urine Protein Urine Glucose (UA) Urine Ketones Urine Occult Blood Urine Nitrite Urine Bilirubin Urine Urobilinogen Ur Leukocyte Esterase Urine RBC Urine WBC Ur Squamous Epith Cells Ur Transition Epith Cell Urine Bacteria Urine Mucus 01/07/19 01/07/19 01/07/19 17:36 17:43 22:30 WBC RBC Hgb Hct MCV MCH MCHC RDW RDW Differential Plt Count MPV Immature Gran % (Auto) Neut % (Auto) Lymph % (Auto) [place] % (Auto) Eos % (Auto) Baso % (Auto) Absolute Neuts (auto) Absolute Lymphs (auto) Total Counted PT INR APTT Sodium Potassium Chloride Carbon Dioxide Anion Gap BUN Creatinine Estim Creat Clear Calc Est GFR (MDRD) Af Amer Est GFR (MDRD) Non-Af BUN/Creatinine Ratio Glucose Hemoglobin A1c 6.2 Calcium Troponin I < 0.015 Triglycerides Cholesterol LDL Cholesterol VLDL Cholesterol HDL Cholesterol Urine Color Straw Urine Clarity Clear Urine pH 7.0 Ur Specific [place] 1.015 Urine Protein Negative Urine Glucose (UA) Normal Urine Ketones Negative Urine Occult Blood 10 H Urine Nitrite Negative Urine Bilirubin Negative Urine Urobilinogen Normal Ur Leukocyte Esterase 100 H Urine RBC 0 SEEN Urine WBC 0-5 SEEN Ur Squamous Epith Cells 0-5 SEEN Ur Transition Epith Cell 0-5 SEEN Urine Bacteria 0 SEEN Urine Mucus 0 SEEN 01/08/19 01/08/19 01:00 06:30 WBC RBC Hgb Hct MCV MCH MCHC RDW RDW Differential Plt Count MPV Immature Gran % (Auto) Neut % (Auto) Lymph % (Auto) [place] % (Auto) Eos % (Auto) Baso % (Auto) Absolute Neuts (auto) Absolute Lymphs (auto) Total Counted PT INR APTT Sodium 142 Potassium 3.6 Chloride 107 Carbon Dioxide 27.0 Anion Gap 8 BUN 13 Creatinine 0.72 Estim Creat Clear Calc 35.26 Est GFR (MDRD) Af Amer 99 Est GFR (MDRD) Non-Af 82 BUN/Creatinine Ratio 17.9 Glucose 109 H Hemoglobin A1c Calcium 8.8 Troponin I < 0.015 Triglycerides 142 Cholesterol 249 H LDL Cholesterol 159 H VLDL Cholesterol 28 HDL Cholesterol 62 Urine Color Urine Clarity Urine pH Ur Specific [place] Urine Protein Urine Glucose (UA) Urine Ketones Urine Occult Blood Urine Nitrite Urine Bilirubin Urine Urobilinogen Ur Leukocyte Esterase Urine RBC Urine WBC Ur Squamous Epith Cells Ur Transition Epith Cell Urine Bacteria Urine Mucus Discharge Diet: No Restrictions Discharge Activity: Return to Normal Activity Call your doctor if you observe: - - confusion. difficulty speaking Home Medications: Medications to take at Discharge Aspirin [Aspirin, Baby] 81 mg PO DAILY@0800 #30 tab.chew 04/02/15 Acetaminophen [Tylenol] 500 mg PO PRN PRN 01/07/19 Doxepin HCl [Silenor] 3 mg PO QHS 01/07/19 Meloxicam [Mobic] 15 mg PO DAILY 01/07/19 Escitalopram Oxalate [Lexapro] 10 mg PO DAILY #30 tablet 01/08/19 Following Prescrptions Were Given to Patient: Escitalopram Oxalate [Lexapro] 10 mg PO DAILY #30 tablet Primary Care Physician: Eleuterio Mistry MD [Primary Care Provider] - Within 2 Weeks Disposition: Home Minutes spent on discharge:: 28 Patient Condition:: Good Medical Necessity - Tobacco Use Smoking Status: Never smoker Meaningful Use Info Meaningful Use Diagnoses (Choose all that apply): None applicable Code Visit OBSV E&M: 18569 Observation care discharge
--- NOTE | 2019-01-08 14:18 | DS.PCM_ITS ---
Discharge Date and Diagnosis - Problem List Patient Problems: Active and Suspected Problems Delirium (Acute) Date of Admission: 01/07/19 Date of Discharge: 01/08/19 - Primary Discharge Diagnosis Active and Suspected Problems Delirium (Acute) - Secondary Discharge Diagnosis Chronic Problems Hyperlipidemia (Chronic) GERD (gastroesophageal reflux disease) (Chronic) CVA (cerebral infarction) (Chronic) Anxiety and depression (Chronic) Gastroesophageal reflux disease with hiatal hernia (Chronic) Hospital Course and Treatment Imaging Results: 01/08/19 22:06 Brain without Contrast [MRI] Routine MRA Head ONLY without Contrast [MRI] Routine MRA Neck WITH and W/O Contrast [MRI] Routine Clinical Impression(s) from Imaging Studies Brain CT 01/07/19 17:17 IMPRESSION: Small vessel ischemia. Electronically Signed: Marlyn Shay MD at 18:34 EST Tel , Service support , Chest X-Ray 01/07/19 17:17 IMPRESSION: Normal x-ray examination of the chest. Electronically Signed: Vince Jurado DO at 19:38 EST Tel [phone], Service support , Brain MRI 01/08/19 22:06 IMPRESSION: Involutional changes of the brain, as described above. Electronically Signed: Sancho Hilario MD at 12:10 EST , Service support , Head MRA 01/08/19 22:06 IMPRESSION: Normal MRA of the head. No aneurysm or occlusion. Stable appearance. Electronically Signed: Sancho Hilario MD at 11:12 EST , Service support , Neck MRA 01/08/19 22:06 IMPRESSION: Normal bilateral cervical carotid and vertebral arteries. Electronically Signed: Sancho Hilario MD at 12:16 EST , Service support , Wily Perez MD: Neurology. Operations: None Procedures: 2-D Echocardiogram Summary of Care Provided: The patient is a 83 year old F presents with expressive aphasia. Symptoms lasted a couple hours and then resolve spontaneously. Patient was doing some paperwork. She does state that she was under stress but denies any undue stress. Denies any history of panic attacks. Patient presented to the emergency room where her symptoms had completely resolved. Patient is never had any issues like this before. Patient underwent a stroke workup with an MRI of the brain, MRA of the head and neck unremarkable. Echocardiogram was performed is currently pending at time of dictation. Patient was seen in consultation by neurology feel that the event of a stress reaction and recommended an SSRI Lexapro 10 mg daily. So patient will be discharged home in stable condition and will be started on Cipro 10 mg daily. Advised to return if she does have recurrent symptoms. [] Patient Problems: Active and Suspected Problems Delirium (Acute) - Physical Exam General: Alert, Cooperative, No apparent distress HEENT: Atraumatic, Normocephalic Oral: Moist Mucosa, No Gingival or Mucosal Lesions/ Ulcerations Neck: No Nodes, Thyroid Normal Size and Texture Lungs: Clear to auscultation, Normal air movement, No rhonchi, No wheeze Cardiovascular: Regular rate, Regular Rhythm, Normal S1, Normal S2 Abdomen: Bowel Sounds Present, Soft, Non Tender, Non-Distended, No Hepato- splenomegaly Extremities: No edema, No Calf Tenderness Vital Signs Temp Pulse Resp BP Pulse Ox 36.8 C 72 18 154/87 H 95 01/08/19 13:15 01/08/19 13:15 01/08/19 13:15 01/08/19 13:15 01/08/19 13:15 Oxygen Delivery Method Room Air Weight: 74.7 kg Body Mass Index (BMI) 29.1 Finger Stick Blood Glucose 134 Intake and Output for Last 24 Hours 01/06/19 01/07/19 01/08/19 23:59 23:59 23:59 Intake Total 240 / 240 Balance 240 / 240 Microbiology Past 72 Hours 01/07/19 17:43 Urine Culture - Preliminary Urine, Clean Catch Culture exhibits no growth. Laboratory Tests Past 24 Hrs 01/07/19 01/07/19 01/07/19 17:36 17:36 17:36 WBC 4.5 RBC 4.89 Hgb 14.0 Hct 44.1 MCV 90.2 MCH 28.6 MCHC 31.7 L RDW 12.6 RDW Differential 40.9 Plt Count 243 MPV 9.4 Immature Gran % (Auto) 0.000 Neut % (Auto) 64.6 Lymph % (Auto) 23.7 [place] % (Auto) 8.3 Eos % (Auto) 2.7 Baso % (Auto) 0.7 Absolute Neuts (auto) 2.9 Absolute Lymphs (auto) 1.06 Total Counted Not Reportable PT 12.5 INR 0.9 APTT 28.5 Sodium 139 Potassium 4.2 Chloride 106 Carbon Dioxide 25.0 Anion Gap 8 BUN 14 Creatinine 0.80 Estim Creat Clear Calc 44.08 Est GFR (MDRD) Af Amer 88 Est GFR (MDRD) Non-Af 73 BUN/Creatinine Ratio 17.6 Glucose 134 H Hemoglobin A1c Calcium 8.8 Troponin I < 0.015 Triglycerides Cholesterol LDL Cholesterol VLDL Cholesterol HDL Cholesterol Urine Color Urine Clarity Urine pH Ur Specific [place] Urine Protein Urine Glucose (UA) Urine Ketones Urine Occult Blood Urine Nitrite Urine Bilirubin Urine Urobilinogen Ur Leukocyte Esterase Urine RBC Urine WBC Ur Squamous Epith Cells Ur Transition Epith Cell Urine Bacteria Urine Mucus 01/07/19 01/07/19 01/07/19 17:36 17:43 22:30 WBC RBC Hgb Hct MCV MCH MCHC RDW RDW Differential Plt Count MPV Immature Gran % (Auto) Neut % (Auto) Lymph % (Auto) [place] % (Auto) Eos % (Auto) Baso % (Auto) Absolute Neuts (auto) Absolute Lymphs (auto) Total Counted PT INR APTT Sodium Potassium Chloride Carbon Dioxide Anion Gap BUN Creatinine Estim Creat Clear Calc Est GFR (MDRD) Af Amer Est GFR (MDRD) Non-Af BUN/Creatinine Ratio Glucose Hemoglobin A1c 6.2 Calcium Troponin I < 0.015 Triglycerides Cholesterol LDL Cholesterol VLDL Cholesterol HDL Cholesterol Urine Color Straw Urine Clarity Clear Urine pH 7.0 Ur Specific [place] 1.015 Urine Protein Negative Urine Glucose (UA) Normal Urine Ketones Negative Urine Occult Blood 10 H Urine Nitrite Negative Urine Bilirubin Negative Urine Urobilinogen Normal Ur Leukocyte Esterase 100 H Urine RBC 0 SEEN Urine WBC 0-5 SEEN Ur Squamous Epith Cells 0-5 SEEN Ur Transition Epith Cell 0-5 SEEN Urine Bacteria 0 SEEN Urine Mucus 0 SEEN 01/08/19 01/08/19 01:00 06:30 WBC RBC Hgb Hct MCV MCH MCHC RDW RDW Differential Plt Count MPV Immature Gran % (Auto) Neut % (Auto) Lymph % (Auto) [place] % (Auto) Eos % (Auto) Baso % (Auto) Absolute Neuts (auto) Absolute Lymphs (auto) Total Counted PT INR APTT Sodium 142 Potassium 3.6 Chloride 107 Carbon Dioxide 27.0 Anion Gap 8 BUN 13 Creatinine 0.72 Estim Creat Clear Calc 35.26 Est GFR (MDRD) Af Amer 99 Est GFR (MDRD) Non-Af 82 BUN/Creatinine Ratio 17.9 Glucose 109 H Hemoglobin A1c Calcium 8.8 Troponin I < 0.015 Triglycerides 142 Cholesterol 249 H LDL Cholesterol 159 H VLDL Cholesterol 28 HDL Cholesterol 62 Urine Color Urine Clarity Urine pH Ur Specific [place] Urine Protein Urine Glucose (UA) Urine Ketones Urine Occult Blood Urine Nitrite Urine Bilirubin Urine Urobilinogen Ur Leukocyte Esterase Urine RBC Urine WBC Ur Squamous Epith Cells Ur Transition Epith Cell Urine Bacteria Urine Mucus Discharge Diet: No Restrictions Discharge Activity: Return to Normal Activity Call your doctor if you observe: - - confusion. difficulty speaking Home Medications: Medications to take at Discharge Aspirin [Aspirin, Baby] 81 mg PO DAILY@0800 #30 tab.chew 04/02/15 Acetaminophen [Tylenol] 500 mg PO PRN PRN 01/07/19 Doxepin HCl [Silenor] 3 mg PO QHS 01/07/19 Meloxicam [Mobic] 15 mg PO DAILY 01/07/19 Escitalopram Oxalate [Lexapro] 10 mg PO DAILY #30 tablet 01/08/19 Following Prescrptions Were Given to Patient: Escitalopram Oxalate [Lexapro] 10 mg PO DAILY #30 tablet Primary Care Physician: Eleuterio Mistry MD [Primary Care Provider] - Within 2 Weeks Disposition: Home Minutes spent on discharge:: 28 Patient Condition:: Good Medical Necessity - Tobacco Use Smoking Status: Never smoker Meaningful Use Info Meaningful Use Diagnoses (Choose all that apply): None applicable Code Visit OBSV E&M: 67494 Observation care discharge
--- NOTE | 2019-01-08 22:06 | MRI_ITS ---
STUDY: MRA OF THE HEAD WITHOUT CONTRAST REASON FOR EXAM: Female, 83 years old. Stroke. Difficulty speaking. Visual changes. TECHNIQUE: 3-D [id number] (TOF) imaging was performed with MIPs. The study was performed unenhanced. COMPARISON: CT January 07, 2019. MRA April 02, 2015. FINDINGS: Normal bilateral petrous carotid arteries. Normal right cavernous carotid artery with a normal supraclinoid bifurcation. Normal left cavernous carotid artery with a normal supraclinoid bifurcation. Normal right A1 segments of the anterior cerebral artery. Normal left A1 segments of the anterior cerebral artery. Normal intact anterior communicating artery (ACOM). Normal bilateral A2 segments of the anterior cerebral arteries. Normal right M1 and M2 segments of the middle cerebral arteries, with a normal M1 bifurcation. Normal left M1 and M2 segments of the middle cerebral arteries, with a normal M1 bifurcation. There is non-visualization of the right posterior communicating artery (PCOM). Normal left posterior communicating artery (PCOM). Normal bilateral vertebral arteries. Normal basilar artery with a normal basilar bifurcation. The visualized bilateral superior cerebellar (SCA) arteries are normal. Normal bilateral P1, P2 and visualized P3 segments of the posterior cerebral arteries. There is no demonstrated aneurysm of the [place]. There is no major vessel occlusion or hemodynamically significant stenosis. There is no demonstrated abnormality of the visualized brain. MRI/MRA Head ONLY without Contrast IMPRESSION: Normal MRA of the head. No aneurysm or occlusion. Stable appearance. Electronically Signed: Sancho Hilario MD at 11:12 EST , Service support ,
--- NOTE | 2019-01-08 22:06 | MRI_ITS ---
STUDY: MRA NECK WITH AND WITHOUT CONTRAST REASON FOR EXAM: Female, 83 years old. Slurred speech. Visual changes. TECHNIQUE: 3-D [id number]-ot-epyyqx (TOF) imaging was performed in an 1.5 T MRI scanner. 7 ml of Gadavist was administered for the contrast enhanced images. COMPARISON: April 02, 2015. FINDINGS: RIGHT CAROTID ARTERIES: Normal right common carotid artery (CCA). Normal right common carotid bulb. Normal origin of the right internal carotid (ICA) artery without a hemodynamically significant stenosis. There is atherosclerotic tortuous elongation of the cervical portion of the right internal carotid artery. Normal origin of the right external carotid artery (ECA). LEFT CAROTID ARTERIES: Normal left common carotid artery (CCA). Normal left common carotid bulb. Normal origin of the left internal carotid (ICA) artery without a hemodynamically significant stenosis. Normal visualized cervical portion of the left internal carotid artery. Normal origin of the left external carotid artery (ECA). VERTEBRAL ARTERIES: Normal antegrade flow within the bilateral vertebral artery without a hemodynamically significant stenosis. MRI/MRA Neck WITH and W/O Contrast IMPRESSION: Normal bilateral cervical carotid and vertebral arteries. Electronically Signed: Sancho Hilario MD at 12:16 EST , Service support ,
--- NOTE | 2019-01-08 22:06 | MRI_ITS ---
STUDY: MRI BRAIN WITHOUT CONTRAST REASON FOR EXAM: Female, 83 years old. Slurred speech. Visual changes. TECHNIQUE: Standardized multiplanar fat and water weighted pulse sequences were obtained. COMPARISON: CT January 07, 2019. FINDINGS: Normal size of the ventricles and extra-axial spaces for the patient's age. There are multiple white matter hyperintensities, distributed throughout the deep white matter tracts of the cerebral hemispheres, consistent with moderate chronic white matter ischemic changes. There is no evidence for recent intracranial ischemia or other cause of cytotoxic edema on diffusion weighted imaging (DWI). Normal T2* images of the brain without demonstrated susceptibility artifact. There is no demonstrated hemosiderin stain. Normal bilateral basal ganglia. Normal thalami. There is no extra-axial fluid accumulation. Normal flow voids within the major intracranial circulation suggesting patency by spin echo criteria. Normal sella turcica, pituitary gland, infundibular stalk, optic chiasm and hypothalamus. Normal tectal plate and pineal gland. Normal midbrain, tristian and medulla. Normal cerebellum. Normal basal cisterns. Normal bilateral temporal bones. Normal bilateral internal auditory canals. There are bilateral ocular lens implants with otherwise normal intraorbital contents. Normal visualized paranasal sinuses. Normal calvarium and skull base. There is diminished signal regions and possible calcifications of the posterior scalp. Normal visualized upper cervical spine. MRI/Brain without Contrast IMPRESSION: Involutional changes of the brain, as described above. Electronically Signed: Sancho Hilario MD at 12:10 EST , Service support ,
== END 2019-01-08 14:13 | disposition home or self-care (01) ==
LOC: ED 18:19 → PCU 21:01
PROVIDERS: Admitting Provider Internal Medicine; Emergency Provider Emergency Medicine; Family Provider Family Medicine; PCP Family Medicine
DX: R41.0 Disorientation, unspecified (principal); R47.01 Aphasia; E78.5 Hyperlipidemia, unspecified; K21.9 Gastro-esophageal reflux disease without esophagitis; K44.9 Diaphragmatic hernia without obstruction or gangrene; F41.9 Anxiety disorder, unspecified; F32.9 Major depressive disorder, single episode, unspecified; R29.700 NIHSS score 0; Z79.899 Other long term (current) drug therapy; Z79.82 Long term (current) use of aspirin; Z86.73 Personal history of transient ischemic attack (TIA), and cerebral infarction without residual deficits; F51.04 Psychophysiologic insomnia
CPT/HCPCS: 36415; 70450; 70544; 70549; 70551; 71045; 80048; 80061; 81001; 83036; 84484; 85025; 85610; 85730; 87086; 87088; 92523; 92610; 93005; 93306; 97161; 97165; 97802; 99218; 99283; A9585; A4216; G0378

== ENCOUNTER 2022-11-01 22:34 | Emergency (ER) | payer MEDICARE, OTHER, SELFPAY ==
--- NOTE | 2022-11-01 00:10 | RAD_ITS ---
INDICATION: cough EXAMINATION/TECHNIQUE: X-RAY - AP view of chest COMPARISON: Chest x-ray from 01/07/2019 FINDINGS: LINES/DEVICES: None. LUNGS: No pulmonary edema or focal airspace consolidation. No sizable pleural effusion. No detectable pneumothorax. MEDIASTINUM AND CARDIOVASCULAR STRUCTURES: Heart normal size. Atherosclerotic calcifications along stable slightly tortuous aorta. BONES AND SOFT TISSUES: Skeletal degenerative changes. RAD/Chest 1 View (Portable) IMPRESSION: No radiographic evidence of acute cardiopulmonary disease. Electronically Signed: Eleuterio Brown MD at 1:11 EST ,
[2022-11-01 22:35] VITALS: BP 173/74; PULSE 90; RESP 18; TEMP 36.1; O2SAT 98; BMI 31.6
[2022-11-01 22:37] VITALS: BP 173/74; PULSE 90; RESP 18; TEMP 36.1; O2SAT 98
--- NOTE | 2022-11-01 23:02 | EKG12_ITS ---
Test Reason : DYSRHYTHMIA Blood Pressure : / mmHG Vent. Rate : 084 BPM Atrial Rate : 084 BPM P-R Int : 164 ms QRS Dur : 084 ms QT Int : 384 ms P-R-T Axes : 044 -33 014 degrees QTc Int : 453 ms Sinus rhythm with occasional Premature ventricular complexes Left axis deviation Inferior infarct , age undetermined Abnormal ECG Confirmed by KATLYN CHAN, NAGA ([id number]), acquisition editor LETICIA HEARN ([id number]) on 11/05/2022 12:15:04 PM Referred By: LIZABETH Confirmed By:NAGA POTTS MD
--- NOTE | 2022-11-01 23:02 | CT_ITS ---
INDICATION: Upper abdominal pain, nausea. EXAMINATION: CT ABDOMEN AND PELVIS WITHOUT CONTRAST TECHNIQUE: Helically acquired images were obtained of the abdomen and pelvis without IV contrast. 2-D reconstructions reviewed. A radiation dose optimization technique was used for this scan. IV Contrast dosage and agent: None. Oral contrast: None. COMPARISON: None. FINDINGS: LOWER CHEST: Mild bibasilar linear scarring. Normal size heart with coronary arterial calcifications. Small hiatal hernia noted. LIVER: Punctate calcified granulomas within liver. Mild focal fat within the left lobe adjacent to falciform ligament. GALLBLADDER AND BILIARY TREE: Tiny calcified stone within the tip of gallbladder. Equivocal mild gallbladder wall thickening versus under distention. No significant biliary ductal dilation. PANCREAS: No discrete mass or peripancreatic edema. SPLEEN: Normal size without discrete mass. ADRENAL GLANDS: Unremarkable. KIDNEYS AND URETERS: Kidneys are symmetric size with a few small bilateral renal cysts. Renal vascular calcifications but no tract stones identified. No perinephric edema or hydroureteronephrosis to suggest recent stone passage. PERITONEUM: No peritoneal free air or significant free fluid. No other fluid collection. RETROPERITONEUM: No retroperitoneal mass or pathologic fluid collection. BOWEL: Normal appendix posterior to the cecum within the right paracolic gutter. Equivocal mildly thickened loops of jejunum within mid to upper abdomen. No bowel obstruction. Distal colonic diverticulosis. No focal inflammatory change. LYMPH NODES: No enlarged mesenteric or retroperitoneal lymph nodes. VESSELS: Atherosclerotic calcifications with no abdominal aortic aneurysm. URINARY BLADDER: Unremarkable as visualized. REPRODUCTIVE ORGANS: Status post partial hysterectomy. No pelvic mass. ABDOMINAL WALL: No acute findings or significant hernia defect. BONES: Degenerative changes and mild scoliotic curvature along spine. Status post right hip arthroplasty. CT/Abdomen/Pelvis without Cont IMPRESSION: 1. Cholelithiasis with equivocal mild gallbladder wall thickening versus underdistention. Suggest further evaluation with gallbladder ultrasound. 2. Equivocal mild enteritis. 3. Distal colonic diverticulosis with no evidence of diverticulitis. 4. Other nonurgent findings within body of report. Electronically Signed: Eleuterio Brown MD at 1:18 EST ,
--- NOTE | 2022-11-01 23:04 | EX.ED.DYSGE1 ---
HPI <Dr. Tess Carrizales MD - Last Filed: 11/02/22 00:40> History of Present Illness Chief Complaint: Abd Pain Detail of Chief Complaint: I'm sick Informant: patient Narrative Narrative: Patient presents with a several week history of URI symptoms. She has been seen at urgent care as well as by her primary care office and placed on Tessalon Perles and doxycycline. She states after taking dose this evening she developed upper abdominal pain with a pressure and full sensation. She is had nausea. She states she is still passing gas. She has not had fever or chills. PFSH <Dr. Tess Carrizales MD - Last Filed: 11/02/22 00:40> [facility] Medical History Anxiety and depression CVA (cerebral infarction) Gastroesophageal reflux disease with hiatal hernia GERD (gastroesophageal reflux disease) Hyperlipidemia TIA (transient ischemic attack) Home Medications aspirin 81 mg chewable tablet 81 mg PO DAILY@0800 ##30 04/02/15 [Rx Last Taken 01/07/19] acetaminophen 500 mg tablet 500 mg PO PRN PRN Pain 01/07/19 [History Last Taken 01/06/19] doxepin 3 mg tablet (Silenor) 3 mg PO QHS sleep 01/07/19 [History Last Taken 01/06/19] meloxicam 15 mg tablet 15 mg PO DAILY 01/07/19 [History Last Taken 01/06/19] escitalopram oxalate 10 mg tablet 10 mg PO DAILY ##30 01/08/19 [Rx Last Taken Unknown] ondansetron HCl 4 mg tablet 4 mg PO Q6H PRN nausea and vomiting #14 tabs 11/02/22 [Rx Last Taken Unknown] Allergy/AdvReac Type Severity Reaction Status Date / Time lactose AdvReac Upset Verified 06/01/15 19:26 Stomach Social History Smoking Status: Never smoker ROS <Dr. Tess Carrizales MD - Last Filed: 11/02/22 00:40> ROS ED Constitutional Constitutional ED: Denies chills or fever(s) Eyes Eyes: Denies change in vision or discharge from eye(s) ENT ENT ED: Denies discharge from eye(s), rhinorrhea or sore throat Cardiovascular Cardiovascular: Denies chest pain or palpitations Respiratory/Chest Respiratory/Chest: Reports cough and dyspnea Gastrointestinal Gastrointestinal: Reports abdominal pain, nausea and vomiting; Denies diarrhea Genitourinary Genitourinary ED: Reports urinary frequency; Denies dysuria Musculoskeletal Musculoskeletal: Denies back pain or extremity pain Integumentary Denies Abrasions or rash Neurologic Neurologic: Denies headache(s) or weakness Allergic/Immunologic Allergic/Immunologic ED: Denies lip swelling or urticaria EXAM <Dr. Tess Carrizales MD - Last Filed: 11/02/22 00:40> Physical Exam Const Vital Signs: 11/01/22 22:35 11/01/22 22:37 11/02/22 00:41 Temperature 96.9 F L 96.9 F L Temperature Source Temporal Temporal Pulse Rate 90 90 74 Respiratory Rate 18 18 16 Blood Pressure 173/74 H 173/74 H 137/59 H Blood Pressure Mean 107 107 85 Pulse Ox 98 98 99 Oxygen Delivery Method Room Air Room Air Room Air 11/02/22 00:43 Temperature 98.2 F Temperature Source Temporal Pulse Rate 74 Respiratory Rate 17 Blood Pressure 137/59 H Blood Pressure Mean 85 Pulse Ox 98 Oxygen Delivery Method Room Air Positive well nourished and well developed General Appearance ED: well developed HEENT Reports normocephalic and head/scalp atraumatic Eyes PERRL and EOMs intact bilaterally Neck supple Chest Wall inspection of chest normal and palpation of chest normal Resp normal respiratory effort and clear to auscultation bilaterally Cardio regular rate and regular rhythm GI GI Narrative: Mild epigastric tenderness palpation. No guarding or rebound. Hypoactive bowel sounds. Palpation: soft Back/Spine no CVA tenderness Extremity normal to inspection Neuro oriented x3 and no sensory deficits noted Sensorium / Orientation: alert Motor Exam: strength 5/5 throughout Psych mental status grossly normal Skin no rashes or lesions noted <Dr. Chrissy Soliz DO - Last Filed: 11/02/22 01:50> Physical Exam Const Vital Signs: 11/01/22 22:35 12 22:37 11/02/22 00:41 Temperature 96.9 F L 96.9 F L Temperature Source Temporal Temporal Pulse Rate 90 90 74 Respiratory Rate 18 18 16 Blood Pressure 173/74 H 173/74 H 137/59 H Blood Pressure Mean 107 107 85 Pulse Ox 98 98 99 Oxygen Delivery Method Room Air Room Air Room Air 11/02/22 00:43 Temperature 98.2 F Temperature Source Temporal Pulse Rate 74 Respiratory Rate 17 Blood Pressure 137/59 H Blood Pressure Mean 85 Pulse Ox 98 Oxygen Delivery Method Room Air MDM <Dr. Tess Carrizales MD - Last Filed: 11/02/22 00:40> MDM MDM Narrative Medical decision making narrative: Patient given Zofran and IV fluids. Lab work obtained. Swabs for COVID and influenza ordered. CT flank obtained. Lab Data Attestation: I reviewed the patient's lab results. Labs: Laboratory Results - last 24 hr 11/01/22 11/01/22 11/02/22 23:05 23:05 00:20 WBC Cancelled Corrected WBC Cancelled RBC Cancelled Hgb Cancelled Hct Cancelled MCV Cancelled MCH Cancelled MCHC Cancelled RDW Std Deviation Cancelled RDW Coeff of [place] Cancelled Plt Count Cancelled MPV Cancelled Immature Gran % (Auto) Cancelled Neut % (Auto) Cancelled Lymph % (Auto) Cancelled Winston % (Auto) Cancelled Eos % (Auto) Cancelled Baso % (Auto) Cancelled Absolute Neuts (auto) Cancelled Absolute Lymphs (auto) Cancelled Total Counted Cancelled Neutrophils % (Manual) Cancelled Band Neutrophils % Cancelled Lymphocytes % (Manual) Cancelled Monocytes % (Manual) Cancelled Eosinophils % (Manual) Cancelled Basophils % (Manual) Cancelled Metamyelocytes % Cancelled Myelocytes % Cancelled Promyelocytes % Cancelled Blast Cells % Cancelled Plasma Cell % (Manual) Cancelled Other Cells % Cancelled Nucleated RBC % Cancelled Nucleated RBCs/100 WBC Cancelled Differential Comment Cancelled Diff Path Review Cancelled Hypersegmented Neuts Cancelled Atypical Lymphocytes Cancelled Reactive Lymphocytes Cancelled Smudge Cells Cancelled Toxic Granulation Cancelled Toxic Vacuolation Cancelled Dohle Bodies Cancelled Reid Rods Cancelled Platelet Estimate Cancelled Plt Morphology Comment Cancelled RBC Morphology Cancelled Polychromasia Cancelled Hypochromasia Cancelled Poikilocytosis Cancelled Basophilic Stippling Cancelled Anisocytosis Cancelled Microcytosis Cancelled Macrocytosis Cancelled Spherocytes Cancelled Sickle Cells Cancelled Target Cells Cancelled Tear Drop Cells Cancelled Ovalocytes Cancelled Stomatocytes Cancelled [place] Bodies Cancelled Kar Cells Cancelled Bite Cells Cancelled Crenated Cell Cancelled Acanthocytes (Spur) Cancelled Rouleaux Cancelled Schistocytes Cancelled Sodium Cancelled 135 L Potassium Cancelled 3.8 Chloride Cancelled 102 Carbon Dioxide Cancelled 28.0 Anion Gap Cancelled 5 BUN Cancelled 11 Creatinine Cancelled 0.76 Estim Creat Clear Calc Cancelled 33.41 Est GFR (MDRD) Af Amer Cancelled 92 Est GFR (MDRD) Non-Af Cancelled 76 BUN/Creatinine Ratio Cancelled 14.4 Glucose Cancelled 143 H Calcium Cancelled 9.4 Total Bilirubin Cancelled 0.60 Direct Bilirubin Cancelled 0.15 AST Cancelled 20 ALT Cancelled 22 Alkaline Phosphatase Cancelled 88 Troponin I High Sens Cancelled 6 Total Protein Cancelled 8.0 Albumin Cancelled 3.8 Globulin Cancelled 4.2 Lipase Cancelled 93 11/02/22 00:20 WBC 7.4 Corrected WBC RBC 4.99 Hgb 12.4 Hct 40.3 MCV 80.8 L MCH 24.8 L MCHC 30.8 L RDW Std Deviation 44.7 H RDW Coeff of Darling 15.3 H Plt Count 327 MPV 9.3 Immature Gran % (Auto) 0.700 Neut % (Auto) 70.6 H Lymph % (Auto) 19.5 Winston % (Auto) 6.3 Eos % (Auto) 2.4 Baso % (Auto) 0.5 Absolute Neuts (auto) 5.2 Absolute Lymphs (auto) 1.45 Total Counted Neutrophils % (Manual) Band Neutrophils % Lymphocytes % (Manual) Monocytes % (Manual) Eosinophils % (Manual) Basophils % (Manual) Metamyelocytes % Myelocytes % Promyelocytes % Blast Cells % Plasma Cell % (Manual) Other Cells % Nucleated RBC % 0 Nucleated RBCs/100 WBC Differential Comment Diff Path Review Hypersegmented Neuts Atypical Lymphocytes Reactive Lymphocytes Smudge Cells Toxic Granulation Toxic Vacuolation Dohle Bodies Reid Rods Platelet Estimate Plt Morphology Comment RBC Morphology Polychromasia Hypochromasia Poikilocytosis Basophilic Stippling Anisocytosis Microcytosis Macrocytosis Spherocytes Sickle Cells Target Cells Tear Drop Cells Ovalocytes Stomatocytes [place] Bodies Kar Cells Bite Cells Crenated Cell Acanthocytes (Spur) Rouleaux Schistocytes Sodium Potassium Chloride Carbon Dioxide Anion Gap BUN Creatinine Estim Creat Clear Calc Est GFR (MDRD) Af Amer Est GFR (MDRD) Non-Af BUN/Creatinine Ratio Glucose Calcium Total Bilirubin Direct Bilirubin AST ALT Alkaline Phosphatase Troponin I High Sens Total Protein Albumin Globulin Lipase Radiography Chest X-Ray - ED: 1 View, Read by ED Physician, Normal, Heart, Lungs, Mediastinum and No Infiltrates Diagnostic Testing: Clinical Impression(s) from Imaging Studies Chest X-Ray 11/01/22 00:10 IMPRESSION: No radiographic evidence of acute cardiopulmonary disease. Electronically Signed: Eleuterio Brown MD at 1:11 EST , Abdomen/Pelvis CT 11/01/22 23:02 IMPRESSION: 1. Cholelithiasis with equivocal mild gallbladder wall thickening versus underdistention. Suggest further evaluation with gallbladder ultrasound. 2. Equivocal mild enteritis. 3. Distal colonic diverticulosis with no evidence of diverticulitis. 4. Other nonurgent findings within body of report. Electronically Signed: Eleuterio Brown MD at 1:18 EST , EKG Initial EKG: Attestation: I personally reviewed and interpreted this EKG as follows: Interpretation: Sinus Rhythm (Sinus 84 with PVCs. Nonspecific lateral ST change.) Treatment and Re-Evaluation Narrative: Patient's chest x-ray per my interpretation reveals no infiltrate. EKG reveals no acute ischemia. Lab work, micro swabs, and CT report are all pending at this time. This will be signed out to oncoming physician for further disposition and evaluation. <Dr. Chrissy Soliz, DO - Last Filed: 11/02/22 01:50> [facility] Lab Data Labs: Laboratory Results - last 24 hr 11/01/22 11/01/22 11/02/22 23:05 23:05 00:20 WBC Cancelled Corrected WBC Cancelled RBC Cancelled Hgb Cancelled Hct Cancelled MCV Cancelled MCH Cancelled MCHC Cancelled RDW Std Deviation Cancelled RDW Coeff of Darling Cancelled Plt Count Cancelled MPV Cancelled Immature Gran % (Auto) Cancelled Neut % (Auto) Cancelled Lymph % (Auto) Cancelled Winston % (Auto) Cancelled Eos % (Auto) Cancelled Baso % (Auto) Cancelled Absolute Neuts (auto) Cancelled Absolute Lymphs (auto) Cancelled Total Counted Cancelled Neutrophils % (Manual) Cancelled Band Neutrophils % Cancelled Lymphocytes % (Manual) Cancelled Monocytes % (Manual) Cancelled Eosinophils % (Manual) Cancelled Basophils % (Manual) Cancelled Metamyelocytes % Cancelled Myelocytes % Cancelled Promyelocytes % Cancelled Blast Cells % Cancelled Plasma Cell % (Manual) Cancelled Other Cells % Cancelled Nucleated RBC % Cancelled Nucleated RBCs/100 WBC Cancelled Differential Comment Cancelled Diff Path Review Cancelled Hypersegmented Neuts Cancelled Atypical Lymphocytes Cancelled Reactive Lymphocytes Cancelled Smudge Cells Cancelled Toxic Granulation Cancelled Toxic Vacuolation Cancelled Dohle Bodies Cancelled Reid Rods Cancelled Platelet Estimate Cancelled Plt Morphology Comment Cancelled RBC Morphology Cancelled Polychromasia Cancelled Hypochromasia Cancelled Poikilocytosis Cancelled Basophilic Stippling Cancelled Anisocytosis Cancelled Microcytosis Cancelled Macrocytosis Cancelled Spherocytes Cancelled Sickle Cells Cancelled Target Cells Cancelled Tear Drop Cells Cancelled Ovalocytes Cancelled Stomatocytes Cancelled [place] Bodies Cancelled [place] Cells Cancelled Bite Cells Cancelled Crenated Cell Cancelled Acanthocytes (Spur) Cancelled Rouleaux Cancelled Schistocytes Cancelled Sodium Cancelled 135 L Potassium Cancelled 3.8 Chloride Cancelled 102 Carbon Dioxide Cancelled 28.0 Anion Gap Cancelled 5 BUN Cancelled 11 Creatinine Cancelled 0.76 Estim Creat Clear Calc Cancelled 33.41 Est GFR (MDRD) Af Amer Cancelled 92 Est GFR (MDRD) Non-Af Cancelled 76 BUN/Creatinine Ratio Cancelled 14.4 Glucose Cancelled 143 H Calcium Cancelled 9.4 Total Bilirubin Cancelled 0.60 Direct Bilirubin Cancelled 0.15 AST Cancelled 20 ALT Cancelled 22 Alkaline Phosphatase Cancelled 88 Troponin I High Sens Cancelled 6 Total Protein Cancelled 8.0 Albumin Cancelled 3.8 Globulin Cancelled 4.2 Lipase Cancelled 93 11/02/22 00:20 WBC 7.4 Corrected WBC RBC 4.99 Hgb 12.4 Hct 40.3 MCV 80.8 L MCH 24.8 L MCHC 30.8 L RDW Std Deviation 44.7 H RDW Coeff of Darling 15.3 H Plt Count 327 MPV 9.3 Immature Gran % (Auto) 0.700 Neut % (Auto) 70.6 H Lymph % (Auto) 19.5 Winston % (Auto) 6.3 Eos % (Auto) 2.4 Baso % (Auto) 0.5 Absolute Neuts (auto) 5.2 Absolute Lymphs (auto) 1.45 Total Counted Neutrophils % (Manual) Band Neutrophils % Lymphocytes % (Manual) Monocytes % (Manual) Eosinophils % (Manual) Basophils % (Manual) Metamyelocytes % Myelocytes % Promyelocytes % Blast Cells % Plasma Cell % (Manual) Other Cells % Nucleated RBC % 0 Nucleated RBCs/100 WBC Differential Comment Diff Path Review Hypersegmented Neuts Atypical Lymphocytes Reactive Lymphocytes Smudge Cells Toxic Granulation Toxic Vacuolation Dohle Bodies Reid Rods Platelet Estimate Plt Morphology Comment RBC Morphology Polychromasia Hypochromasia Poikilocytosis Basophilic Stippling Anisocytosis Microcytosis Macrocytosis Spherocytes Sickle Cells Target Cells Tear Drop Cells Ovalocytes Stomatocytes [place] Bodies [place] Cells Bite Cells Crenated Cell Acanthocytes (Spur) Rouleaux Schistocytes Sodium Potassium Chloride Carbon Dioxide Anion Gap BUN Creatinine Estim Creat Clear Calc Est GFR (MDRD) Af Amer Est GFR (MDRD) Non-Af BUN/Creatinine Ratio Glucose Calcium Total Bilirubin Direct Bilirubin AST ALT Alkaline Phosphatase Troponin I High Sens Total Protein Albumin Globulin Lipase Radiography Diagnostic Testing: Clinical Impression(s) from Imaging Studies Chest X-Ray 11/01/22 00:10 IMPRESSION: No radiographic evidence of acute cardiopulmonary disease. Electronically Signed: Eleuterio Brown MD at 1:11 EST , Abdomen/Pelvis CT 11/01/22 23:02 IMPRESSION: 1. Cholelithiasis with equivocal mild gallbladder wall thickening versus underdistention. Suggest further evaluation with gallbladder ultrasound. 2. Equivocal mild enteritis. 3. Distal colonic diverticulosis with no evidence of diverticulitis. 4. Other nonurgent findings within body of report. Electronically Signed: Eleuterio Brown MD at 1:18 EST , Treatment and Re-Evaluation Narrative: Patient's chest x-ray per my interpretation reveals no infiltrate. EKG reveals no acute ischemia. Lab work, micro swabs, and CT report are all pending at this time. This will be signed out to oncoming physician for further disposition and evaluation. Out to me pending reevaluation and results. Her lab work shows normal white blood cell and red blood cell counts with normal platelets. BMP and liver panel largely unremarkable. CT of the abdomen pelvis shows cholelithiasis we will equivocal mild gallbladder wall thickening versus underdistention and equivocal mild enteritis with no other acute process. On repeat exam patient is feeling much better. She has no tenderness in the right upper quadrant. She does not have a transaminitis or leukocytosis so low suspicion for cholecystitis. She does not have any diarrhea at this time. Patient be discharged home with a prescription for Zofran. Given referral for outpatient follow-up with surgery with on-call, Dr. King. She is agreeable this plan of care. Counseled return precautions. Discharged home in stable condition. Discharge Plan Triage Chief Complaint: Abd Pain ED Provider: Tess Carrizales Dx/Rx/DC Orders Clinical Impression: Abdominal pain, Nausea, Gallstones Instructions: ED Gallstones with Biliary Colic, ED Gastroenteritis, Viral (Adult) Prescriptions: New ondansetron HCl 4 mg tablet 4 mg PO Q6H PRN (Reason: nausea and vomiting) Qty: 14 0RF No Action aspirin 81 MG tablet,chewable 81 mg PO DAILY@0800 Qty: 30 0RF Label Comments: heart health/blood thinner meloxicam 15 MG tablet 15 mg PO DAILY Label Comments: TAKE 1 TABLET BY MOUTH ONCE DAILY. TAKE WITH FOOD. acetaminophen 500 MG tablet 500 mg PO PRN PRN (Reason: Pain) doxepin [Silenor] 3 MG tablet 3 mg PO QHS Label Comments: TAKE 1 TABLET BY MOUTH EVERYDAY AT BEDTIME escitalopram oxalate 10 MG tablet 10 mg PO DAILY Qty: 30 0RF Primary Care Provider: Eleuterio Mistry Referrals: Farideh King MD [Med Staff - Active Staff] - As Needed Eleuterio Mistry MD [Primary Care Provider] - Disposition Disposition: Home, Self Care
[2022-11-02] MEDS: Ondansetron 4 MG/2 ML Vial IV (00:36)
[2022-11-02] MEDS: 0.9% Normal Saline 1,000 ML 150 ML IV (00:36)
[2022-11-02 00:38] VITALS: O2SAT 99
[2022-11-02 00:41] VITALS: BP 137/59; PULSE 74; RESP 16; O2SAT 99
[2022-11-02 00:43] VITALS: BP 137/59; PULSE 74; RESP 17; TEMP 36.8; O2SAT 98
[2022-11-02 00:44] LABS: Absolute Lymphocyte Count 1.45 X10^3/uL (0.83-4.51); Absolute Neutrophil Count 5.2 X10^3/uL (2.0-7.7); Basophil# 0.04 X10^3/uL; Basophil% 0.5 % (0-1); Eosinophil# 0.18 X10^3/uL; Eosinophils% 2.4 % (0-5); Hematocrit 40.3 % (37-47); Hemoglobin 12.4 g/dL (12.0-15.0); Lymphocyte # 1.45 X10^3/ul (0.83-4.51); Lymphocyte % 19.5 % (19-41); Mean Corp Hgb Conc 30.8 g/dL (32-36); Mean Corpuscular Hgb 24.8 pg (27.0-32.0); Mean Corpuscular Volume 80.8 fL (81-99); Mean Platelet Vol. 9.3 fl (6.2-12.0); Monocyte# 0.47 X10^3/uL; Monocyte% 6.3 % (0-10); NRBC Flagged by Analyzer 0 % (0-5); Neutrophil # 5.23 X10^3/uL (2.7-7.7); Neutrophil % 70.6 % (47-70); Platelet Count 327 K/mm3 (150-450); RBC Distribution Width CV 15.3 % (11.6-14.6); RBC Distribution Width SD 44.7 fl (35.1-43.9); Red Blood Count 4.99 M/mm3 (4.2-5.4); White Blood Count 7.4 K/mm3 (4.4-11.0)
[2022-11-02 00:47] LABS: AST(SGOT) 20 U/L (15-37); Alanine Aminotransfer ALT/SGPT 22 U/L (13-56); Albumin, Serum 3.8 g/dL (3.2-5.0); Alkaline Phosphatase 88 U/L (45-117); Anion Gap 5 (5-15); BUN 11 mg/dL (7-18); BUN/Creat Ratio 14.4 RATIO (10-20); Bilirubin, Direct 0.15 mg/dL (0.00-0.30); Calcium,Total 9.4 mg/dL (8.5-10.1); Chloride 102 mmol/L (98-107); Creatinine, Serum 0.76 mg/dL (0.55-1.02); EST Glomerular Filtration Rate 76 mL/min (>60); Est Glom Filt Rate - Afr Amer 92 mL/min (>60); Estimated Creatinine Clearance 33.41 ml/min; Globulin 4.2 g/dL (2.2-4.2); Glucose 143 mg/dL (74-106); Lipase 93 U/L (73-393); Potassium 3.8 mmol/L (3.5-5.1); Sodium Level 135 mmol/L (136-145); Troponin-I HS (w/2H Reflex) 6 pg/mL (3.0-54.0)
[2022-11-02 02:01] VITALS: BP 130/74; PULSE 68; RESP 17; TEMP 36.9; O2SAT 99
[2022-11-02 02:24] LABS: Reflex Troponin-HS? (from REC) Y
== END 2022-11-02 02:02 | disposition home or self-care (01) ==
PROVIDERS: Emergency Provider Emergency Medicine; PCP Family Medicine; Visit Provider Emergency Medicine
DX: K80.20 Calculus of gallbladder without cholecystitis without obstruction (principal); E78.5 Hyperlipidemia, unspecified; R11.0 Nausea
CPT/HCPCS: 71045; 74176; 80048; 80076; 83690; 84484; 85025; 87428; 93005; 96361; 96374; 99283; J7030; A4216; J2405